=== PATIENT | female | born 1955 | race Caucasian/White ===

== ENCOUNTER 2017-06-15 10:45 | Inpatient (IN) | payer OTHER ==
[~2017-06-15] VITALS: Ht 160 cm; Wt 74.8 kg
[~2017-06-15 10:45] MED LIST: ASPI81CT89 PO; LISI5TAB18 PO; METF500T PO; MIC5 PO
[2017-06-15 11:24] VITALS: BP 160/95
[2017-06-15 11:59] LABS: BASOPHILS # (AUTO) 0.1 K/uL (0.00-0.22); BASOPHILS % (AUTO) 1.3 % (0.0-2.0); EOSINOPHILS # (AUTO) 0.2 K/uL (0-0.4); EOSINOPHILS % (AUTO) 3.3 % (0.0-4.0); HEMATOCRIT 41.4 % (36-48); HEMOGLOBIN 13.8 g/dL (12.0-16.0); LYMPHOCYTES # (AUTO) 2.8 K/uL (2.5-16.5); LYMPHOCYTES % (AUTO) 37.1 % (20.5-51.1); MEAN CORPUSCULAR HEMOGLOBIN 29 pg (27-31); MEAN CORPUSCULAR HGB CONC 33 g/dL (33-37); MEAN CORPUSCULAR VOLUME 87 fL (80-94); MONOCYTES # (AUTO) 0.3 K/uL (0.8-1.0); MONOCYTES % (AUTO) 4.2 % (1.7-9.3); NEUTROPHILS # (AUTO) 4.1 K/uL (1.8-7.7); NEUTROPHILS % (AUTO) 54.1 % (42.2-75.2); PLATELET COUNT (AUTO) 183 K/uL (140-450); RED BLOOD CELL COUNT(AUTO) 4.79 MIL/uL (4.20-5.40); RED CELL DISTRIBUTION WIDTH 12.6 % (11.6-13.7); WHITE BLOOD COUNT (AUTO) 7.5 K/uL (4.8-10.8)
[2017-06-15 12:12] LABS: ANION GAP 10.5 (8-16); CARBON DIOXIDE 28.3 mmol/L (21-32); CREATININE 0.7 mg/dL (0.6-1.3); POTASSIUM 3.8 mmol/L (3.5-5.1)
--- NOTE | 2017-06-15 12:17 | NUR ---
Patient ambulated to bed 8. RN evaluating patient at bedside.
[2017-06-15 12:19] LABS: ALBUMIN 3.7 g/dL (3.4-5.0); TOTAL BILIRUBIN 0.5 mg/dL (0.0-1.0)
--- NOTE | 2017-06-15 12:25 | NUR ---
Dr. Quan evaluating patient at bedside.
[2017-06-15] MEDS: NACL 0.9% 1,000 ML IV SCH (12:41)
[2017-06-15] MEDS ORDERED: ONDANSETRON 4 MG/2 ML VIAL IVP PRN (12:45)
[2017-06-15] MEDS ORDERED: DEXTROSE 50% 50 ML SYR IVP PRN (12:45)
[2017-06-15] MEDS ORDERED: LORazepam 1 MG TAB PO PRN (12:45)
[2017-06-15] MEDS ORDERED: ZOLPIDEM 5 MG TAB PO PRN (12:45)
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
[2017-06-15 12:56] LABS: PROTHROMBIN TIME 9.9 secs (10.8-13.4)
[2017-06-15] MEDS ORDERED: ASPI81CT89 PO (12:58)
[2017-06-15] MEDS ORDERED: METF1000 PO (12:58)
[2017-06-15] MEDS ORDERED: MIC5 PO (12:58)
--- NOTE | 2017-06-15 13:59 | NUR ---
REPORT GIVEN TO CALE BAZAN; HORTENSIA STATES WILL CALL BACK WHEN ROOM READY.
--- NOTE | 2017-06-15 14:18 | NUR ---
Patient will be admitted to care of DR. AGUILAR. Admited to TELE. Will go to room 107B. Belongings list completed. Report to HORTENSIA MADSEN.
--- NOTE | 2017-06-15 14:30 | NUR ---
Admitted from ER , with chief complaint of LEFT SIDED CHEST PAIN AND FACIAL WEAKNESS , 62 y/o ,Female, Cooperative, AAOX4, NO S/S OF ACUTE DISTRESS, IV SITE PATENT AND INTACT, PT DENIES PAIN, LEFT SIDED WEAKNESS NOTED, PT HAS DECREASED SENSATION TO LEFT SIDE OF FACE, PT oriented to call light, bed, phone,television, bathroom, smoking policy, visiting hours, procedures, ID bracelet on. Belongings list checked. FALL RISK PROTOCOL INITIATED. DAUGHTER AT BEDSIDE. WILL CONTINUE TO MONITOR.
[2017-06-15 14:39] VITALS: BP 145/71
[2017-06-15] MEDS ORDERED: PNEUMOCOCCAL VACCINE 23 MCG/0.5 ML VIAL IMVAC SCH (14:55)
[2017-06-15] MEDS ORDERED: NITROGLYCERIN 0.4 MG TAB SL PRN (15:10)
[2017-06-15] MEDS ORDERED: REGADENOSON 0.4 MG/5 ML SYR IV SCH (15:50)
[2017-06-15] MEDS: BLOOD GLUCOSE MONITORING 1 DEV DEV FS SCH ×2 (15:55→21:05)
[2017-06-15] MEDS: glyBURIDE 5 MG TAB PO SCH (15:55)
[2017-06-15] MEDS: metFORMIN 500 MG TAB PO SCH (15:55)
--- NOTE | 2017-06-15 15:56 | NUR ---
PT STATES SHE FEELS DIZZY AND HASN'T EATEN AT ALL TODAY. BLOOD SUGAR CHECKED. 75. APPLE JUICE GIVEN. WILL CONTINUE TO MONITOR.
[2017-06-15 16:18] VITALS: BP 123/65
--- NOTE | 2017-06-15 16:24 | NUR ---
PT STATES SHE IS NO LONGER DIZZY AFTER DRINKING 120 ML OF APPLE JUICE.
--- NOTE | 2017-06-15 19:16 | NUR ---
ENDORSED PLAN OF CARE TO NIGHT RN. PT REMAINS STABLE.
--- NOTE | 2017-06-15 19:20 | NUR ---
RECEIVED PT FROM HORTENSIA RN PT AZERBAIJANI SPEAKER AAOX4 AMBULATORY DENIES ANY PAIN AT THIS TIME ON TELEMETRY SR RELATIVES AT BED SIDE INITIAL ASSESSMENT DONE
[2017-06-15 20:00] VITALS: BP 104/57
[2017-06-15 20:11] LABS: CREATINE KINASE MB 1.2 ng/mL (0-3.6)
[2017-06-15] MEDS: METOPROLOL 25 MG TAB PO SCH (21:00)
[2017-06-15] MEDS: MORPHINE SULFATE 2 MG/ML SYR IVP PRN (21:00)
[2017-06-15] MEDS: INSULIN LISPRO SLIDING SCALE 100 UNITS/ML VIAL SUBQ PRN (21:04)
--- NOTE | 2017-06-15 21:30 | NUR ---
AFTER PKLAIN MEDIC GIVEN PT DENIES ANY PAIN ON LEFT LOWER EXTREMITIES ON TELE SR
[2017-06-16] VITALS: BP 129/66
--- NOTE | 2017-06-16 | NUR ---
PT VOOIDING WELL AMBULATES TO THE RESTROOM NOT DISTRESS NOTED.
--- NOTE | 2017-06-16 03:00 | NUR ---
PT COMPLAIN OF SORE THROAT WELT CUTTER FOR LAUREN WAS CALL TWICE DR RAMSAY AND WAITING FOR HER CALL BACK ON TELEMETRY SR
[2017-06-16 04:00] VITALS: BP 118/59
[2017-06-16] MEDS: NACL 0.9% 1,000 ML IV SCH ×2 (04:21→13:41)
[2017-06-16] MEDS: MORPHINE SULFATE 2 MG/ML SYR IVP PRN (04:23)
--- NOTE | 2017-06-16 05:32 | NUR ---
AFTER PAIN MEDIC GIVEN PT SLEEP QUITE ON TELEMETRY SR NOT DISTRESS NOTED
[2017-06-16] MEDS: glyBURIDE 5 MG TAB PO SCH ×2 (06:06→16:35)
[2017-06-16] MEDS: BLOOD GLUCOSE MONITORING 1 DEV DEV FS SCH ×2 (06:06→11:30)
[2017-06-16] MEDS: INSULIN LISPRO SLIDING SCALE 100 UNITS/ML VIAL SUBQ PRN (06:09)
--- NOTE | 2017-06-16 06:24 | NUR ---
BLOOD SUGAR TEST 152 COVERAGE WITH 2 UNITS HUMALOG SUB Q ONLEFT ARM
[2017-06-16 06:31] LABS: BASOPHILS # (AUTO) 0.1 K/uL (0.00-0.22); BASOPHILS % (AUTO) 1.4 % (0.0-2.0); EOSINOPHILS # (AUTO) 0.2 K/uL (0-0.4); EOSINOPHILS % (AUTO) 3.1 % (0.0-4.0); HEMATOCRIT 38.7 % (36-48); HEMOGLOBIN 12.8 g/dL (12.0-16.0); LYMPHOCYTES # (AUTO) 2.6 K/uL (2.5-16.5); LYMPHOCYTES % (AUTO) 33.9 % (20.5-51.1); MEAN CORPUSCULAR HEMOGLOBIN 29 pg (27-31); MEAN CORPUSCULAR HGB CONC 33 g/dL (33-37); MEAN CORPUSCULAR VOLUME 87 fL (80-94); MONOCYTES # (AUTO) 0.4 K/uL (0.8-1.0); MONOCYTES % (AUTO) 5.7 % (1.7-9.3); NEUTROPHILS # (AUTO) 4.4 K/uL (1.8-7.7); NEUTROPHILS % (AUTO) 55.9 % (42.2-75.2); PLATELET COUNT (AUTO) 164 K/uL (140-450); RED BLOOD CELL COUNT(AUTO) 4.45 MIL/uL (4.20-5.40); RED CELL DISTRIBUTION WIDTH 12.5 % (11.6-13.7); WHITE BLOOD COUNT (AUTO) 7.7 K/uL (4.8-10.8)
[2017-06-16 06:53] LABS: ANION GAP 11.1 (8-16); CARBON DIOXIDE 26.9 mmol/L (21-32); CREATININE 0.6 mg/dL (0.6-1.3)
--- NOTE | 2017-06-16 07:30 | NUR ---
RECEIVED REPORT FROM RAIL DIRECTOR NURSE AT BEDSIDE FOR CONTINUITY OF CARE. PT IS AWAKE AND ORIENTED. INTRODUCED SELF AND UPDATED BOARD. WILL RETURN WITH SCHEDULED MEDS AND CONTINUE TO MONITOR.
[2017-06-16 08:00] VITALS: BP 123/74
--- NOTE | 2017-06-16 08:15 | NUR ---
PATIENT HAS BEEN SCREENED AND CATEGORIZED MODERATE NUTRITION RISK. PATIENT WILL BE SEEN WITHIN 3-5 DAYS OF ADMISSION. 06/18/17-06/20/[address]
[2017-06-16] MEDS: METOPROLOL 25 MG TAB PO SCH (08:35)
[2017-06-16] MEDS: metFORMIN 500 MG TAB PO SCH ×2 (08:35→16:36)
--- NOTE | 2017-06-16 08:41 | NUR ---
PT FINISHED EATING BREAKFAST. ADMINISTERED SCHEDULED MEDS. PT TOLERATED WELL. PT DENIES WEAKNESS IN EXTREMITIES AND AMBULATED TO BATHROOM AND WHEELCHAIR. PT LEFT UNIT WITH MECHANICAL OPERATOR VIA WHEELCHAIR FOR STRESS TEST.
[2017-06-16] MEDS ORDERED: ATORVASTATIN 20 MG TAB PO SCH (09:00)
[2017-06-16] MEDS ORDERED: ENOXAPARIN 40 MG/0.4 ML SYR SUBQ SCH (09:00)
[2017-06-16] MEDS ORDERED: ASPIRIN 325 MG TAB PO SCH (09:00)
[2017-06-16] MEDS ORDERED: DOCUSATE SODIUM 100 MG GELCAP PO SCH (09:00)
[2017-06-16] MEDS ORDERED: ASPIRIN 325 MG TABEC PO SCH (09:00)
[2017-06-16] MEDS ORDERED: LISINOPRIL 5 MG TAB PO SCH (09:00)
--- NOTE | 2017-06-16 09:24 | NUR ---
PT RETURNED TO ROOM FROM RADIOLOGY BY TECH.
--- NOTE | 2017-06-16 09:38 | NUR ---
STRESS TEST DONE
--- NOTE | 2017-06-16 11:59 | NUR ---
CM NOTE INITIAL REVIEW FAXED TO [facility] [phone] CM ARLET [phone]
--- NOTE | 2017-06-16 12:35 | NUR ---
PT LEFT UNIT FOR LEXISCAN STRESS TEST. LEFT VIA WHEELCHAIR ACCOMPANIED BY RN AND TECH.
[2017-06-16 12:49] VITALS: BP 118/73
[2017-06-16] MEDS ORDERED: REGADENOSON 0.4 MG/5 ML SYR IV SCH (13:30)
--- NOTE | 2017-06-16 14:28 | NUR ---
LEXISCAN STRESS TEST DONE
--- NOTE | 2017-06-16 14:50 | NUR ---
PT RETURNED TO UNIT VIA WHEELCHAIR FROM LEXISCAN STRESS TEST. PT AMBULATED TO BED FROM WHEELCHAIR. PT IS SITTING UP IN BED RIGHT NOW. WILL CONTINUE TO MONITOR.
--- NOTE | 2017-06-16 15:50 | NUR ---
CHECKED ON PT IN ROOM. SHE WAS DONE EATING LATE LUNCH TRAY. PT AMBULATED TO BATHROOM WITH STEADY GAIT. PT DENIES WEAKNESS. HAS NO COMPLAINTS AT THIS TIME. WILL CONTINUE TO MONITOR.
[2017-06-16 16:05] VITALS: BP 109/72
--- NOTE | 2017-06-16 17:15 | NUR ---
PT D/C. GIVEN D/C INSTRUCTIONS AND PT SIGNED FORMS. REMOVED IV CATHETER. APPLIED PRESSURE TO SITE. NO BLEEDING NOTED. REMOVED ID BANDS AND TELE MONITOR. PT VERBALIZED UNDERSTANDING OF D/C INSTRUCTIONS. LEFT UNIT WITH ALL PERSONAL BELONGINGS AND IN STABLE CONDITION. D/C TO GO HOME. LEFT UNIT VIA WHEELCHAIR ACCOMPANIED BY RN AND FAMILY MEMBERS.
== END 2017-06-16 17:15 | disposition home or self-care (01) | DRG 243 ==
LOC: MED 10:45 → MTU 12:41
PROVIDERS: ADMIT Hospitalist; ATTEND Hospitalist
DX: K21.9 Gastro-esophageal reflux disease without esophagitis (principal); E11.65 Type 2 diabetes mellitus with hyperglycemia; I10 Essential (primary) hypertension; R20.0 Anesthesia of skin; R07.2 Precordial pain; E66.9 Obesity, unspecified; Z68.29 Body mass index [BMI] 29.0-29.9, adult; Z79.899 Other long term (current) drug therapy; Z90.49 Acquired absence of other specified parts of digestive tract; Z79.82 Long term (current) use of aspirin; Z79.84 Long term (current) use of oral hypoglycemic drugs
CPT/HCPCS: 36415; 70450; 71010; 80048; 80053; 82550; 82553; 82948; 84484; 85025; 85610; 85730; 87081; 90732; 93005; 93017; 99285; A9500; A9502; J1650; J1815; J2270; J2785; J7030; Q0092